=== PATIENT | female | born 1995 | race Caucasian/White ===

== ENCOUNTER 2017-03-07 11:40 | Emergency (ER) | payer BC ==
[2017-03-07 11:45] VITALS: BP 148/87; BMI 27.4
--- NOTE | 2017-03-07 12:48 | DR.GENAD ---
HPI - PCP Primary Care Physician: ALEX - HPI Comment HPI Comment: HISTORY BELOW. - Complaint/Symptoms Chief Complaint Doctors Comments: LOWER ABDOMINAL PAIN. PERIOD LATE 10 DAYS. TEST 4 DAYS AGO WAS POSITIVE. PATIENT HAD NEGATIVE TEST AT HOME. NO VAGINAL BLEEDING OR DYSURIA. US GB DONE IN [place] WAS ABNORMAL. NAUSEATED BUT NO VOMITING. Chief Complaint:: PATIENT STATED SHE WAS IN THE ER IN [place] 4 DAYS AGO AND HAD A POSTIIVE TEST, SHE STARTED CRAMPING IN HER LOWER ABD AND THE HOME TEST WAS NEGATIVE. - Nurses notes reviewed Nurses Notes Review: Yes - Source History Provided: Patient - Mode of Arrival Mode of Arrival: Ambulatory - Timing Onset of Chief Complaint: 02/28/17 Came on: Suddenly - Duration Duration: Constant Duration: Days - Severity Severity: Moderate PMH - PMH Past Medical History: No Past Surgical History: Yes Surgical History: Appendectomy, Tonsillectomy, Lithotripsy - Family History History of Family Medical Conditions: Yes Family Medical History: Diabetes Mellitus, Cancer, Coronary Artery Disease, Hypertension - Social History Does patient currently use any type of tobacco product: No Have you used tobacco products in the last 12 months: No Type of Tobacco Use: None Does any household member use tobacco: No Alcohol Use: None Do you use any recreational Drugs:: No Lives With: Family Lives Where: Home - infectious screening In the last 2 months have you had wt loss of >10#?: NO Have you had fever, night sweats or hemotysis?: No Have you traveled outside the country in the last 6 months?: No Isolation: Standard ROS - Review of Systems Constitutional: No Symptoms Reported. negative: Diaphoresis, Fever, Weakness, Fatigue, Loss of Appetite Eyes: No Symptoms Reported. negative: Eye Pain, Discharge ENTM: No Symptoms Reported. negative: Ear Pain, Nose Discharge, Nose Congestion , Throat Pain Respiratoy: No Symptoms Reported. negative: Non-Productive Cough, Short of Breath, Wheezing, Hemoptysis Cardiovascular: No Symptoms Reported Gastrointestinal/Abdominal: Abdominal Pain (LOWER ABD), Nausea. negative: Constipation, Diarrhea, Vomiting Genitourinary: No Symptoms Reported. negative: Dysuria, Frequency, Hematuria Neurological: No Symptoms Reported. negative: Headache, Weakness, Dizziness Musculoskeletal: No Symptoms Reported. negative: Muscle Pain Integumentary: No Symptoms Reported Hematologic/Lymphatic: No Symptoms Reported Endocrine: No Symptoms Reported All Other Systems: Reviewed and Negative PE - Vital Signs Vitals: Pulse Rate 87 Respiratory Rate 16 Blood Pressure 148/87 O2 Sat by Pulse Oximetry 100 - General Limitations: No Limitations General Appearance: Alert - Head Head Exam: Normal Inspection - Eyes Eye exam: Normal Appearance - ENT ENT Exam: Normal External Ear Exam External Ear Exam: Normal External Inspection TM/Canal Exam: Bilateral Normal Nose Exam: Normal Nose Exam Mouth Exam: Normal Inspection Throat Exam: Normal Inspection - Neck Neck Exam: Trachea Midline - Chest Chest Inspection: Symmetric Chest Wall Rise - Respiratory Respiratory Exam: Normal Lung Sounds Bilat Respiratory Exam: Bilateral Clear to Auscultation - Cardiovascular Cardiovascular Exam: Regular Rate, Normal Rhythm, Normal Heart Sounds - Abdominal Exam Abdominal Exam: Normal Bowel Sounds, Soft. negative: Tenderness - Extremities Extremities Exam: Normal Inspection - Back Back Exam: Normal Inspection - Neurologic Neurological Exam: Alert, Oriented X3 - Skin Skin Exam: Normal Color MDM - Differential Diagnosis Differential Diagnosis: LOWER ABDOMINAL PAIN, LATE Course - Treatment Treatment: SEE ORDERS. - Education/Counseling Education/Counseling: Patient, Education Educated On: Treatment, Diagnosis, Needs for Follow Up ROR - Labs Reviewed Laboratory Results Reviewed?: Yes Result Diagrams: 03/07/17 12:28 03/07/17 12:28 Laboratory: WBC 7.1 X10^3/uL (3.6-10.0) 03/07/17 12:28 RBC 5.01 X10^6/uL (3.5-5.4) 03/07/17 12:28 Hgb 14.0 g/dL (12.0-16.0) 03/07/17 12:28 Hct 41.4 % (36.0-47.0) 03/07/17 12:28 MCV 82.6 fL (80.0-100.0) 03/07/17 12:28 MCH 28.0 pg (27.0-34.0) 03/07/17 12:28 MCHC 33.9 g/dL (33.0-35.0) 03/07/17 12:28 RDW 13.0 % (11.6-16.5) 03/07/17 12:28 Plt Count 254 X10^3/uL (150.0-450.0) 03/07/17 12:28 MPV 8.0 fL (7.4-11.0) 03/07/17 12:28 Neut % 68.6 % (42.0-75.0) 03/07/17 12:28 Lymph % 25.6 % (21.0-51.0) 03/07/17 12:28 [place] % 4.3 % (0.0-13.0) 03/07/17 12:28 Eos % 1.2 % (0.9-2.9) 03/07/17 12:28 Baso % 0.3 % (0.2-1.0) 03/07/17 12:28 Neut # 4.9 x10^3/uL (2.2-4.8) H 03/07/17 12:28 Lymph # 1.8 X10^3/uL (1.3-2.9) 03/07/17 12:28 [place] # 0.3 x10^3/uL (0.3-0.8) 03/07/17 12:28 Eos # 0.1 x10^3/uL (0.0-0.2) 03/07/17 12:28 Baso # 0.0 X10^3/uL (0.0-0.1) 03/07/17 12:28 Absolute Nucleated RBC 0.0 /100WBC 03/07/17 12:28 Sodium 143 mmol/L (136-145) 03/07/17 12:28 Corrected Sodium 143 mmol/L (136-145) 03/07/17 12:28 Potassium 4.1 mmol/L (3.5-5.1) 03/07/17 12:28 Chloride 104 mmol/L (98-107) 03/07/17 12:28 Carbon Dioxide 28.1 mmol/L (21-32) 03/07/17 12:28 BUN 12 mg/dL (7-18) 03/07/17 12:28 Creatinine 0.76 mg/dL (0.55-1.02) 03/07/17 12:28 Est GFR (MDRD) Af Amer > 60 (>60) 03/07/17 12:28 Est GFR (MDRD) Non-Af > 60 (>60) 03/07/17 12:28 Glucose 114 mg/dL (65-99) H 03/07/17 12:28 Calcium 9.1 mg/dL (8.5-10.1) 03/07/17 12:28 Corrected Calcium TNP 03/07/17 12:28 Total Bilirubin 0.20 mg/dL (0.2-1.0) 03/07/17 12:28 AST 20 Units/L (15-37) 03/07/17 12:28 ALT 38 Units/L (12-78) 03/07/17 12:28 Alkaline Phosphatase 93 Units/L (45-150) 03/07/17 12:28 Total Protein 7.6 g/dL (6.4-8.2) 03/07/17 12:28 Albumin 4.0 g/dL (3.4-5.0) 03/07/17 12:28 Globulin 3.6 g/dL (2.5-4.5) 03/07/17 12:28 Albumin/Globulin Ratio 1.1 Ratio (1.1-2.1) 03/07/17 12:28 Triglycerides 148 mg/dL (0-150) 03/07/17 12:28 Cholesterol 170 mg/dL (0-200) 03/07/17 12:28 LDL Cholesterol, Calc 99 mg/dL (0-100) 03/07/17 12:28 HDL Cholesterol 41 mg/dL (40-60) 03/07/17 12:28 Cholesterol/HDL Ratio 4.1 (0.0-5.0) 03/07/17 12:28 Amylase 54 Units/L (25-115) 03/07/17 12:28 HCG, Qual Negative <10 mIU/mL 03/07/17 12:28 Specimen Type Clean catch urine 03/07/17 13:41 Urine Color Yellow (YELLOW) 03/07/17 13:41 Urine Appearance Clear (CLEAR) 03/07/17 13:41 Urine pH 6.0 (5.0 - 8.0) 03/07/17 13:41 Ur Specific [place] 1.020 (1.000-1.030) 03/07/17 13:41 Urine Protein Negative (NEGATIVE) 03/07/17 13:41 Urine Glucose (UA) Negative (NEGATIVE) 03/07/17 13:41 Urine Ketones Negative (NEGATIVE) 03/07/17 13:41 Urine Occult Blood 1+ (NEGATIVE) 03/07/17 13:41 Urine Nitrite Negative (NEGATIVE) 03/07/17 13:41 Urine Bilirubin Negative (NEGATIVE) 03/07/17 13:41 Urine Urobilinogen Normal (NORMAL) 03/07/17 13:41 Ur Leukocyte Esterase Negative (NEGATIVE) 03/07/17 13:41 Urine RBC 0-2 /HPF (NEGATIVE) 03/07/17 13:41 Urine WBC 0 /HPF (NEGATIVE) 03/07/17 13:41 Ur Squamous Epith Cells Rare /HPF (NEGATIVE) 03/07/17 13:41 Urine Bacteria Trace /HPF (NEGATIVE) 03/07/17 13:41 Ur Culture Indicated? No/not indicated 03/07/17 13:41 - XRAY XRAY Interpreted by: Radiologist XRAY Findings: REPORT DISCUSS WITH PATIENT. - Diagnosis Discharge Problem: Late period Abdominal pain Qualifiers: Abdominal location: lower abdomen, unspecified Qualified Code(s): R10.30 - Lower abdominal pain, unspecified - Discharge Plan Disposition: 01 HOME, SELF-CARE Condition: Stable - Follow ups/Referrals Follow ups/Referrals: JOLEEN APONTE [STAFF PHYSICIAN] - 2 days NFD,None [Primary Care Provider] - 2 days - Instructions Instructions: Abdominal Pain, Adult, [id number], Test Information Additional Instructions: RETURN TO ED IF WORSE..
[2017-03-07 12:53] LABS: SERUM PREGNANCY TEST, QUAL NEGATIVE <10 mIU/mL
[2017-03-07 13:32] LABS: ALANINE AMINOTRANSFERASE 38 Units/L (12-78); ALKALINE PHOSPHATASE 93 Units/L (45-150); AMYLASE 54 Units/L (25-115); ASPARTATE AMINO TRANSFERASE 20 Units/L (15-37); BASOPHILS % (AUTO) 0.3 % (0.2-1.0); BLOOD UREA NITROGEN 12 mg/dL (7-18); CALCIUM 9.1 mg/dL (8.5-10.1); CARBON DIOXIDE 28.1 mmol/L (21-32); CHLORIDE 104 mmol/L (98-107); CHOL/HDL RATIO 4.1 (0.0-5.0); CHOLESTEROL 170 mg/dL (0-200); COR NA(FOR HYPERGLY) 143 mmol/L (136-145); CREATININE 0.76 mg/dL (0.55-1.02); EOSINOPHILS # (AUTO) 0.1 x10^3/uL (0.0-0.2); EOSINOPHILS % (AUTO) 1.2 % (0.9-2.9); GLUCOSE 114 mg/dL (65-99); HDL CHOLESTEROL 41 mg/dL (40-60); HEMATOCRIT 41.4 % (36.0-47.0); LYMPHOCYTES # (AUTO) 1.8 X10^3/uL (1.3-2.9); LYMPHOCYTES % (AUTO) 25.6 % (21.0-51.0); MEAN CORPUSCULAR HGB CONC 33.9 g/dL (33.0-35.0); MEAN CORPUSCULAR VOLUME 82.6 fL (80.0-100.0); MONOCYTES # (AUTO) 0.3 x10^3/uL (0.3-0.8); MONOCYTES % (AUTO) 4.3 % (0.0-13.0); NEUTROPHILS # (AUTO) 4.9 x10^3/uL (2.2-4.8); NEUTROPHILS % (AUTO) 68.6 % (42.0-75.0); PLATELET COUNT 254 X10^3/uL (150.0-450.0); RED BLOOD COUNT 5.01 X10^6/uL (3.5-5.4); SODIUM 143 mmol/L (136-145); TOTAL PROTEIN 7.6 g/dL (6.4-8.2); TRIGLYCERIDES 148 mg/dL (0-150); WHITE BLOOD COUNT 7.1 X10^3/uL (3.6-10.0); eGFR BLACK RACES > 60 (>60); eGFR NON BLACK RACES > 60 (>60)
[2017-03-07 13:52] LABS: BILIRUBIN,URINE NEGATIVE (NEGATIVE); BLOOD/HEMOGLOBIN,URINE 1+ (NEGATIVE); GLUCOSE, URINE NEGATIVE (NEGATIVE); KETONES,URINE NEGATIVE (NEGATIVE); LEUKOCYTE ESTERASE ,URINE NEGATIVE (NEGATIVE); NITRITES,URINE NEGATIVE (NEGATIVE); PROTEIN,URINE NEGATIVE (NEGATIVE); UROBILINOGEN,URINE NORMAL (NORMAL)
--- NOTE | 2017-03-07 13:53 | RAD ---
Acute abdominal series Indication:Abdominal pain Comparison: None available Findings: The trachea is midline. The cardiac silhouette is unremarkable. The lungs are clear without focal infiltrate or effusion. The bony thorax is unremarkable. Flat and upright evaluation of the abdomen demonstrates a normal bowel gas pattern. No pathological soft tissue mass or calcification can be observed. The bony structures are grossly intact. IMPRESSION: 1. No acute cardiopulmonary disease. 2. No evidence for acute abdominal pathology identified. Reported By:
[2017-03-07 14:03] LABS: APPEARANCE,URINE CLEAR (CLEAR); BACTERIA,URINE TRACE /HPF (NEGATIVE); COLOR,URINE YELLOW (YELLOW); RBC,URINE 0-2 /HPF (NEGATIVE); SQUAMOUS EPITHELIAL CELL,UR RARE /HPF (NEGATIVE)
== END 2017-03-07 14:12 | disposition home or self-care (01) ==
LOC: ER 11:48
DX: R10.84 Generalized abdominal pain (principal); Z32.02 Encounter for pregnancy test, result negative
CPT/HCPCS: 36415; 74022; 80053; 80061; 81001; 82150; 84703; 85025; 99282; 99283

== ENCOUNTER 2017-11-30 19:46 | Emergency (ER) | payer SELFPAY ==
[2017-11-30 19:55] VITALS: BMI 28.3
[2017-11-30 20:46] LABS: BILIRUBIN,URINE NEGATIVE (NEGATIVE); BLOOD/HEMOGLOBIN,URINE 1+ (NEGATIVE); GLUCOSE, URINE NEGATIVE (NEGATIVE); KETONES,URINE NEGATIVE (NEGATIVE); LEUKOCYTE ESTERASE ,URINE 1+ (NEGATIVE); NITRITES,URINE NEGATIVE (NEGATIVE); PROTEIN,URINE NEGATIVE (NEGATIVE); UROBILINOGEN,URINE NORMAL (NORMAL)
[2017-11-30 20:50] LABS: AMORPHOUS SEDIMENT,UR 2+ /HPF (NEGATIVE); APPEARANCE,URINE CLEAR (CLEAR); BACTERIA,URINE TRACE /HPF (NEGATIVE); COLOR,URINE YELLOW (YELLOW); RBC,URINE RARE /HPF (NEGATIVE); SQUAMOUS EPITHELIAL CELL,UR MANY /HPF (NEGATIVE)
--- NOTE | 2017-11-30 21:34 | DR.GENAD ---
HPI - PCP Primary Care Physician: nfd - Complaint/Symptoms Chief Complaint Doctors Comments: Patient states that she is trying to get , her last cycle was end of September of october. She admits to cramping and spotting Chief Complaint:: cramping, spotting - Source History Provided: Patient - Mode of Arrival Mode of Arrival: Ambulatory - Timing Onset of Chief Complaint: 11/28/17 PMH - PMH Past Medical History: Yes Past Medical History: Kidney Stones Past Medical History Comment: hypoglycemia Past Surgical History: Yes Surgical History: Appendectomy, Tonsillectomy, Lithotripsy - Family History History of Family Medical Conditions: Yes Family Medical History: Cancer - Social History Does patient currently use any type of tobacco product: No Have you used tobacco products in the last 12 months: No Type of Tobacco Use: None Does any household member use tobacco: No Alcohol Use: None Do you use any recreational Drugs:: No Lives With: Family - infectious screening In the last 2 months have you had wt loss of >10#?: NO Have you had fever, night sweats or hemotysis?: No Have you traveled outside the country in the last 6 months?: No Isolation: Standard ROS - Review of Systems Eyes: No Symptoms Reported ENTM: No Symptoms Reported Respiratoy: No Symptoms Reported Cardiovascular: No Symptoms Reported Gastrointestinal/Abdominal: No Symptoms Reported Genitourinary: No Symptoms Reported Neurological: No Symptoms Reported Musculoskeletal: No Symptoms Reported Integumentary: No Symptoms Reported Hematologic/Lymphatic: No Symptoms Reported Endocrine: No Symptoms Reported Psychiatric: No Symptoms Reported All Other Systems: Reviewed and Negative PE - Vital Signs Vitals: Temperature 98 F Pulse Rate 90 Respiratory Rate 18 Blood Pressure 131/80 O2 Sat by Pulse Oximetry 99 - General Limitations: No Limitations General Appearance: Alert, In No Apparent Distress - Head Head Exam: Normal Inspection, Atraumatic - Eyes Eye exam: Normal Appearance, PERRL, EOMI - ENT ENT Exam: Normal Exam External Ear Exam: Normal External Inspection TM/Canal Exam: Bilateral Normal Nose Exam: Normal Nose Exam Mouth Exam: Normal Inspection Throat Exam: Normal Inspection - Neck Neck Exam: Normal Inspection, Full ROM - Chest Chest Inspection: Normal Inspection, Symmetric Chest Wall Rise - Respiratory Respiratory Exam: Normal Lung Sounds Bilat Respiratory Exam: Bilateral Clear to Auscultation - Cardiovascular Cardiovascular Exam: Regular Rate, Normal Rhythm - Abdominal Exam Abdominal Exam: Normal Inspection, Normal Bowel Sounds Abdominal Tenderness: negative: RUQ, RLQ, LUQ, LLQ, Epigastrium, Suprapubic, Diffuse, Mild, Moderate, Severe, Other - Extremities Extremities Exam: Normal Inspection, Full ROM - Back Back Exam: Normal Inspection, Full ROM - Neurologic Neurological Exam: Alert, Oriented X3 - Psychiatric Psychiatric Exam: Normal Affect, Normal Mood - Skin Skin Exam: Warm, Dry, Intact ROR - Labs Reviewed Laboratory: HCG, Qual Positive >10 mIU/mL 11/30/17 21:40 Specimen Type Clean catch urine 11/30/17 20:22 Urine Color Yellow (YELLOW) 11/30/17 20: Urine Appearance Clear (CLEAR) 11/30/17 20: Urine pH 7.0 (5.0 - 8.0) 11/30/17 20: Ur Specific [place] 1.010 (1.000-1.030) 11/30/17 20:22 Urine Protein Negative (NEGATIVE) 11/30/17 20: Urine Glucose (UA) Negative (NEGATIVE) 11/30/17 20: Urine Ketones Negative (NEGATIVE) 11/30/17 20:22 Urine Occult Blood 1+ (NEGATIVE) 11/30/17 20:22 Urine Nitrite Negative (NEGATIVE) 11/30/17 20: Urine Bilirubin Negative (NEGATIVE) 11/30/17 20:22 Urine Urobilinogen Normal (NORMAL) 11/30/17 20:22 Ur Leukocyte Esterase 1+ (NEGATIVE) 11/30/17 20:22 Urine RBC Rare /HPF (NEGATIVE) 11/30/17 20:22 Urine WBC 0-2 /HPF (NEGATIVE) 11/30/17 20:22 Ur Squamous Epith Cells Many /HPF (NEGATIVE) 11/30/17 20:22 Amorphous Sediment 2+ /HPF (NEGATIVE) 11/30/17 20:22 Urine Bacteria Trace /HPF (NEGATIVE) 11/30/17 20:22 Ur Culture Indicated? No/not indicated 11/30/17 - XRAY XRAY Interpreted by: Radiologist (OB US less than 14 weeks: Early intrauterine gestation with an average ultrasound age of 4 weeks, 3 days. Close short term interval follow up with ultrasound and serial beta HCG levels is recommended to ensure porper development and viability.) - Diagnosis Discharge Problem: Intrauterine normal Qualifiers: Trimester: first trimester Qualified Code(s): Z34.91 - Encounter for supervision of normal , unspecified, first trimester - Discharge Plan Condition: Stable - Follow ups/Referrals Follow ups/Referrals: NFD,None [Primary Care Provider] - 3 days - Instructions
[2017-11-30 21:57] LABS: SERUM PREGNANCY TEST, QUAL POSITIVE >10 mIU/mL
--- NOTE | 2017-11-30 23:06 | US ---
STUDY: OB ULTRASOUND LESS THAN 14 WEEKS History: Cramping, spotting, positive test. Comparison: None. Technique: Multiple grayscale and color flow Doppler images of the pelvis were obtained with focused evaluation of the early gestation. Images were obtained via transvaginal approach. Findings: There is an intrauterine gestational sac identified measuring 6.2 mm. No yolk sac is identified. There is a possible early pole. The right ovary measures 2.6 x 1.3 cm. There is small simple cyst in the right ovary that measures 1. 3 x 1.2 cm. The left ovary is normal in appearance measuring 1.9 x 2.0 x 2.0 cm. IMPRESSION: 1. Early intrauterine gestation with an average ultrasound age of 4 weeks, 3 days. 2. Close short-term interval follow-up with ultrasound and serial beta HCG levels is recommended to e nsure proper development and viability. Reported By:
[2017-11-30 23:29] VITALS: BP 135/77
== END 2017-11-30 23:29 | disposition home or self-care (01) ==
LOC: ER 20:04
DX: O26.859 Spotting complicating pregnancy, unspecified trimester (principal); Z34.91 Encounter for supervision of normal pregnancy, unspecified, first trimester; Z3A.01 Less than 8 weeks gestation of pregnancy
CPT/HCPCS: 36415; 76801; 81001; 84703; 99284